=== PATIENT | female | born 1975 | race Caucasian/White ===

== ENCOUNTER 2017-02-19 21:09 | Emergency (ER) | payer BC ==
--- NOTE | ~2017-02-19 | CT4 ---
[facility] A Service of [facility] RADIOLOGY TEXT RESULTS PATIENT: ESTEFANÍA FERNANDEZ LOCATION: SED : 73 UNIT #: [id number] AGE: [address]: Irvin Duncan MD SEX: F ORDER DR: [id number] [place] [id number] E MR#: [id number] Acc #: [id number] NAME: ESTEFANÍA FERNANDEZ : 1975 SEX: F STUDY DATE/TIME: 02/19/2017 22:04 UNIT: SED ROOM: STUDY DESCRIPTION: CT Abd and Pelv Wo Cont Attending Physician: Irvin Duncan M.D. Ordering Physician: Irvin Duncan M.D. Primary Care Physician: Connie Liu M.D. MEDICAL IMAGING REPORT This report is preliminary unless electronic signature is present. EXAM CT abdomen and pelvis INDICATIONS Left lower quadrant pain and flank pain. Nausea. TECHNIQUE CT of the abdomen and pelvis without contrast. Coronal and sagittal reconstructions were obtained. This CT exam was performed with one or more of the following radiation dose reduction techniques: Automatic exposure control, adjustment of mA and/or kV according to patient size, and iterative reconstruction. COMPARISON CT abdomen and pelvis dated 02/20/2012. FINDINGS ABDOMEN: Noncontrast evaluation of the solid abdominal organs are within normal limits. No urinary calculi. No hydronephrosis. The gallbladder is not distended. The bowel is not dilated. The appendix is normal. PELVIS: There is trace free fluid. This is likely physiologic. Uterus and ovaries are within normal limits. Bladder is unremarkable. No enlarged pelvic or inguinal lymph nodes. IMPRESSION 1. No acute findings in the abdomen and pelvis. 2. No urinary calculi. Normal appendix. Dictated by... Alfredo Nuñez M.D. [facility] A Service [facility] RADIOLOGY TEXT RESULTS PATIENT: ESTEFANÍA FERNANDEZ LOCATION: SED : 73 UNIT #: [id number] AGE: [address]: Irvin Duncan MD SEX: F ORDER DR: THIS IS AN ELECTRONICALLY VERIFIED REPORT Alfredo Nuñez M.D. at 02/20/2017 10:29 PM RPPati/dwayne TD: 02/20/2017 00:00 JOB #: [id number] MEDICAL IMAGING REPORT Page 1 of 1
[2017-02-19] MEDS ORDERED: NO MEDICATIONS (21:17)
[2017-02-19 21:35] LABS: URINE SOURCE CLEAN CATCH
[2017-02-19 21:38] LABS: URINE APPEARANCE CLEAR; URINE BILIRUBIN NEG (NEG); URINE BLOOD NEG (NEG); URINE COLOR YELLOW; URINE GLUCOSE NEG (NORM); URINE KETONE NEG (NEG); URINE LEUKOCYTE ESTERASE NEG (NEG); URINE NITRATE NEG (NEG); URINE PROTEIN NEG (NEG); URINE SPECIFIC GRAVITY 1.015 (1.003-1.035); URINE UROBILINOGEN 0.2 MG/DL (NORM)
[2017-02-19 21:39] LABS: MICRO INDICATED? NO
[2017-02-19 21:50] LABS: BASOPHIL# 0.2 X10e3 (0-0.3); EOSINOPHIL# 0.4 X10e3 (0-0.7); EOSINOPHIL% 2.1 % (0.0-7.0); HEMATOCRIT 45.4 % (35.0-45.0); HEMOGLOBIN 15.5 gm/dL (12.0-16.0); LYMPHOCYTE# 4.9 X10e3 (1.0-3.5); LYMPHOCYTE% 29.1 % (17.0-45.0); MEAN CELL VOLUME 86.8 FL (83-96); MEAN CORPUSCULAR HEMOGLOBIN 29.5 PG (28-34); MEAN PLATELET VOLUME 8.7 FL (6.5-11.5); MONOCYTE# 1.2 X10e3 (0-1.0); MONOCYTE% 7.3 % (3.0-12.0); NEUTROPHIL# 10.2 X10e3 (1.5-7.1); NEUTROPHIL% 60.5 % (40-75); PLATELET COUNT 250 X10e3 (140-420); RED BLOOD COUNT 5.23 X10e (3.90-5.30); RED CELL DISTRIBUTION WIDTH 13.5 % (11.0-15.5); WHITE BLOOD COUNT 16.8 X10e3 (4.0-10.5)
[2017-02-19 21:54] LABS: DIFF IND NO
[2017-02-19 22:09] LABS: BILIRUBIN, DIRECT 0.1 mg/dL (0.0-0.2); BILIRUBIN,INDIRECT 0.2 mg/dL (0.0-0.9); BILIRUBIN,TOTAL 0.3 mg/dL (0.2-2.0); BUN/CREATININE RATIO 11.25; CALCIUM SERUM 8.9 mg/dL (8.4-10.2); CREATININE SERUM 0.8 mg/dL (0.6-1.4); GLOM FILT RATE Estimated 90.4 mL/min (>60); POTASSIUM 3.5 mmol/L (3.5-5.1); PROTEIN TOTAL SERUM 7.2 g/dL (6.0-8.3)
[2017-02-21 19:04] LABS: CHLAMYDIA TRACH Not Detected (Not Detected); N GONOR Not Detected (Not Detected)
== END 2017-02-19 23:38 | disposition home or self-care (01) ==
LOC: SED 21:09
PROVIDERS: Emergency Medicine
DX: R10.32 Left lower quadrant pain (principal); F17.200 Nicotine dependence, unspecified, uncomplicated; Z88.0 Allergy status to penicillin
CPT/HCPCS: 36415; 74176; 80048; 80076; 81003; 83690; 84703; 85025; 87210; 87491; 87591; 87808; 87905; 96361; 96374; 96375; 99284; J1885; J2405